=== PATIENT | male | born 1960 | race Caucasian/White ===

== ENCOUNTER 2023-04-04 10:47 | Outpatient (CLI) | payer MEDICARE | END 2023-04-04 10:48 | disposition home or self-care (01) | LOC: RAD 10:47 | PROVIDERS: ATTEND Student in an Organized Health Care Education/Training Program | DX: R13.12 Dysphagia, oropharyngeal phase (principal); G20 Parkinson's disease | CPT/HCPCS: 74230 ==

== ENCOUNTER 2024-07-05 08:09 | Outpatient (CLI) | payer MEDICARE | END 2024-07-05 08:10 | disposition home or self-care (01) | LOC: SCSMRI 08:09 | PROVIDERS: ATTEND Family Medicine Sports Medicine | DX: M46.1 Sacroiliitis, not elsewhere classified (principal); M47.816 Spondylosis without myelopathy or radiculopathy, lumbar region; M48.061 Spinal stenosis, lumbar region without neurogenic claudication; M47.817 Spondylosis without myelopathy or radiculopathy, lumbosacral region; M48.07 Spinal stenosis, lumbosacral region; M25.80 Other specified joint disorders, unspecified joint | CPT/HCPCS: 72148 ==

== ENCOUNTER 2025-03-20 13:10 | Outpatient (CLI) | payer MEDICARE | END 2025-03-20 13:11 | disposition home or self-care (01) | LOC: SCSMRI 13:10 | PROVIDERS: ATTEND Family Medicine Sports Medicine | DX: M54.50 Low back pain, unspecified (principal); G95.19 Other vascular myelopathies; M47.816 Spondylosis without myelopathy or radiculopathy, lumbar region; M47.817 Spondylosis without myelopathy or radiculopathy, lumbosacral region | CPT/HCPCS: 72148; 72195 ==